=== PATIENT | female | born 1940 | race Caucasian/White ===

== ENCOUNTER 2016-08-07 12:29 | Inpatient (IN) | payer MEDICARE, BC ==
[~2016-08-07] VITALS: Ht 165.1 cm; Wt 60.6 kg
[~2016-08-07 12:29] MED LIST: ASPI-650 PO; CARV6.2512 PO; NEBI5TAB2 PO
[2016-08-07 14:50] VITALS: BP 133/84
[2016-08-07] MEDS ORDERED: NEBI5TAB2 PO (14:59)
[2016-08-07] MEDS ORDERED: RILU50TA3 PO (14:59)
[2016-08-07] MEDS ORDERED: ONDANSETRON 2MG/ML, 2ML IVP PRN (15:00)
[2016-08-07] MEDS ORDERED: maalox/diphenh/lido/sucralfate 5 ML PO ONE (15:00)
[2016-08-07] MEDS ORDERED: PLEASE ENTER HEIGHT AND WEIGHT MC SCH (15:30)
[2016-08-07] MEDS: D5%-0.9% NACL 1,000 ML IV SCH ×2 (15:49→23:50)
[2016-08-07] MEDS: RILUZOLE 50 MG HOMEMEDPO SCH (17:00)
[2016-08-07 18:30] VITALS: BP 142/80
[2016-08-07] MEDS ORDERED: RILUZOLE 50 MG PO SCH (21:00)
[2016-08-07] MEDS ORDERED: DIPHENHYDRAMINE 50 MG/ML, 1ML IVPush ONE (21:00)
[2016-08-07] MEDS: FAMOTIDINE 20 MG/2 ML IV SCH (21:47)
[2016-08-08 01:23] VITALS: BP 133/67
[2016-08-08] MEDS ORDERED: ZOLP10TA5 PO (05:19)
[2016-08-08 05:39] LABS: HEMOGLOBIN 13.5 g/dL (11.7-16.4)
[2016-08-08 06:01] LABS: BLOOD UREA NITROGEN 12 mg/dL (7-18)
[2016-08-08 06:30] VITALS: BP 104/65
[2016-08-08] MEDS: D5%-0.9% NACL 1,000 ML IV SCH ×3 (08:05→23:00)
[2016-08-08] MEDS: FAMOTIDINE 20 MG/2 ML IV SCH ×2 (10:30→21:00)
[2016-08-08] MEDS: RILUZOLE 50 MG HOMEMEDPO SCH ×2 (10:31→16:37)
[2016-08-08 12:40] VITALS: BP 131/82
[2016-08-08] MEDS ORDERED: CEFAZOLIN PMX 1GM/50ML 50 ML ONE (13:57)
[2016-08-08] MEDS ORDERED: PROPOFOL 10 MG/ML, 20ML ONE (13:58)
[2016-08-08] MEDS ORDERED: CEFAZOLIN 1,000 MG ONE (13:58)
[2016-08-08] MEDS ORDERED: ONDANSETRON 2MG/ML, 2ML IVPush PRN (15:00)
[2016-08-08] MEDS ORDERED: EPHEDRINE 50 MG/ML, 1ML IVPush PRN (15:00)
[2016-08-08] MEDS ORDERED: FENTANYL PF 100 MCG/2ML IV PRN (15:00)
[2016-08-08] MEDS ORDERED: LABETALOL 5MG/ML, 20ML IV PRN (15:00)
[2016-08-08] MEDS ORDERED: HYDROcodone/APAP 7.5-325MG/15ML UDC PO PRN (15:00)
[2016-08-08] MEDS: MORPHINE SULFATE 4 MG/ML, 1ML IVPush PRN ×3 (16:36→18:16)
[2016-08-08] MEDS ORDERED: RISPERIDONE 0.5 MG TABLET PO SCH (19:30)
[2016-08-08] MEDS ORDERED: ZIPRASIDONE 20 MG INJ IM ONE (21:00)
[2016-08-09 02:00] VITALS: BP 112/74
[2016-08-09] MEDS: RILUZOLE 50 MG HOMEMEDPO SCH ×2 (05:00→17:00)
[2016-08-09 08:30] VITALS: BP 122/73
[2016-08-09] MEDS: FAMOTIDINE 20 MG/2 ML IV SCH ×2 (09:26→23:06)
[2016-08-09] MEDS: D5%-0.9% NACL 1,000 ML IV SCH (09:28)
[2016-08-09] MEDS ORDERED: CEFAZOLIN 1,000 MG ONE (13:58)
[2016-08-09] MEDS ORDERED: PROPOFOL 10 MG/ML, 20ML ONE (13:58)
[2016-08-09 14:00] VITALS: BP 121/77
[2016-08-09 18:54] VITALS: BP 142/87
[2016-08-10 01:55] VITALS: BP 120/66
[2016-08-10] MEDS: RILUZOLE 50 MG HOMEMEDPO SCH ×2 (04:38→17:00)
[2016-08-10 05:56] LABS: BLOOD UREA NITROGEN 13 mg/dL (7-18)
[2016-08-10] MEDS: FAMOTIDINE 20 MG/2 ML IV SCH ×2 (07:29→21:37)
[2016-08-10 07:40] VITALS: BP 146/77
[2016-08-10 12:30] VITALS: BP 106/72
[2016-08-10 18:55] VITALS: BP 127/83
[2016-08-11 02:53] VITALS: BP 126/81
[2016-08-11] MEDS: RILUZOLE 50 MG HOMEMEDPO SCH ×2 (05:00→17:00)
[2016-08-11 07:06] VITALS: BP 127/69
[2016-08-11] MEDS: FAMOTIDINE 20 MG/2 ML IV SCH ×2 (08:42→20:48)
[2016-08-11 12:00] VITALS: BP 141/83
[2016-08-11] MEDS ORDERED: DIPHENHYDRAMINE 50 MG/ML, 1ML IVPush ONE (14:00)
[2016-08-11 18:33] VITALS: BP 130/73
[2016-08-12 01:11] VITALS: BP 121/73
[2016-08-12] MEDS: RILUZOLE 50 MG HOMEMEDPO SCH (05:00)
[2016-08-12 07:15] LABS: BLOOD UREA NITROGEN 20 mg/dL (7-18)
[2016-08-12 07:46] VITALS: BP 109/74
[2016-08-12] MEDS: FAMOTIDINE 20 MG/2 ML IV SCH (09:11)
== END 2016-08-12 15:09 | disposition home or self-care (01) | DRG 57 ==
LOC: 3NE 14:12 → DCLOUNGE 08-12 14:27
PROVIDERS: ADMIT Internal Medicine; ATTEND Internal Medicine
PROC: 0DJ08ZZ Inspection of Upper Intestinal Tract, Via Natural or Artificial Opening Endoscopic (ICD-10-PCS; principal; 2016-08-07)
PROC: 0DH63UZ Insertion of Feeding Device into Stomach, Percutaneous Approach (ICD-10-PCS; 2016-08-07)
DX: G12.21 Amyotrophic lateral sclerosis (principal); R13.12 Dysphagia, oropharyngeal phase; E83.39 Other disorders of phosphorus metabolism; F41.9 Anxiety disorder, unspecified; F48.2 Pseudobulbar affect; G47.00 Insomnia, unspecified; I10 Essential (primary) hypertension; J44.9 Chronic obstructive pulmonary disease, unspecified; Z66 Do not resuscitate; M54.5 Low back pain; G89.29 Other chronic pain; Z87.891 Personal history of nicotine dependence; R63.4 Abnormal weight loss
CPT/HCPCS: 31629; 36415; 74230; 80048; 83735; 84100; 85025; J0690; J2704; J3486; J7042; J1200; S0028